=== PATIENT | male | born 1965 | race Caucasian/White ===

== ENCOUNTER 2021-10-12 13:35 | Emergency (ER) | payer OTHER ==
[~2021-10-12] VITALS: Ht 175.3 cm; Wt 83.9 kg
[2021-10-12] MEDS ORDERED: CYCLOBENZAPRINE10 MG PO (16:06)
[2021-10-12] MEDS ORDERED: LISINOPRIL10 MG PO (18:38)
[2021-10-12] MEDS ORDERED: HYDROCODON-ACE1 EA10 PO (18:38)
[2021-10-12] MEDS ORDERED: PREDNISONE20 MG PO (18:38)
== END 2021-10-12 19:04 | disposition home or self-care (01) ==
LOC: ED 13:35
DX: M54.42 Lumbago with sciatica, left side (principal); I10 Essential (primary) hypertension; F17.200 Nicotine dependence, unspecified, uncomplicated; Z79.899 Other long term (current) drug therapy
CPT/HCPCS: 36415; 72100; 80053; 85025; 99283-25; J7512

== ENCOUNTER 2022-04-14 17:44 | Emergency (ER) | payer OTHER ==
[~2022-04-14] VITALS: Ht 175.3 cm; Wt 75.8 kg
[~2022-04-14 17:44] MED LIST: CYCLOBENZAPRINE10 MG PO; HYDROCODON-ACE1 EA10 PO; LISINOPRIL-HCT1 EACH PO; LISINOPRIL10 MG PO; NAPROXEN500 MG PO; PREDNISONE20 MG PO; ROSUVASTATIN CA40 MG NG
--- OUTSIDE RECORDS SUMMARY | 2022-04-14 17:46 | XMS ---
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 Samantha has no Care Guidelines for this patient. Justyna VISIT COUNT (12 MO.) 1 [facility] NOTE: Visits indicate total known visits. ED/C VISIT TRACKING (12 MO.) 04/14/2022 17:44 [facility] TYPE: Emergency COMPLAINT: - CHEST PAIN 03/29/2022 15:54 [facility] TYPE: Emergency DIAGNOSES: - Disorder of arteries and arterioles, unspecified - Tobacco use - Elevated blood-pressure reading, without diagnosis of hypertension - Foot Pain 03/15/2022 13:59 [facility] TYPE: Emergency COMPLAINT: - L FOOT INJURY DIAGNOSES: - Other watermaster (current) drug therapy - Pain in left ankle and joints of left foot - Nicotine dependence, unspecified, uncomplicated - Unspecified atherosclerosis of [place] arteries of extremities, other extremity - Essential (primary) hypertension 10/12/2021 13:36 [facility] TYPE: Emergency COMPLAINT: - LOWER BACK PAIN, L LEG NUMBNESS DIAGNOSES: - Lumbago with sciatica, left side - Essential (primary) hypertension - Low back pain, unspecified - Other watermaster (current) drug therapy - Nicotine dependence, unspecified, uncomplicated INPATIENT VISIT TRACKING (12 MO.) [facility] DIAGNOSES: - Atherosclerosis of [place] arteries of extremities with rest pain, left leg - Tobacco use - Disorder of arteries and arterioles, unspecified - Presence of other vascular implants and grafts - Elevated blood-pressure reading, without diagnosis of hypertension - Essential (primary) hypertension [email or web address]
[2022-04-14] MEDS ORDERED: NICOTINE1 EAC2 TD (17:59)
[2022-04-14] MEDS ORDERED: GABAPENTIN300 MG PO (17:59)
[2022-04-14] MEDS ORDERED: OXYCODONE HCL5 MG PO (18:00)
[2022-04-14] MEDS ORDERED: CLOPIDOGREL75 MG PO (18:00)
[2022-04-14] MEDS ORDERED: AMLODIPINE BESYL5 MG PO (18:00)
[2022-04-14] MEDS ORDERED: LO-DOSE ASPIRIN81 MG PO (18:00)
--- NOTE | 2022-04-17 17:18 | EKG ---
[facility] [address] [place] [address] Signed Sinus tachycardia Otherwise normal ECG When compared with ECG of 16-DEC-2021 11:08, No significant change was found Confirmed by Toan Howe MD () on 04/17/2022 5:18:01 PM Electronically Signed By: TOAN HOWE MD 04/17/22 1718 PATIENT NAME: PRADEEP CORONEL Electrocardiogram DATE OF : 63 PHYSICIAN: TOAN HOWE MD REPORT #: [id number] REPORT IS CONFIDENTIAL AND NOT TO BE RELEASED WITHOUT AUTHORIZATION
== END 2022-04-14 20:51 | disposition home or self-care (01) ==
LOC: ED 17:44
DX: R07.2 Precordial pain (principal); I10 Essential (primary) hypertension; F17.200 Nicotine dependence, unspecified, uncomplicated; Z79.899 Other long term (current) drug therapy; Z79.82 Long term (current) use of aspirin
CPT/HCPCS: 36415; 80053; 84484; 85025; 93005; 93010; 96374; 99285-25; J1170